=== PATIENT | female | born 1940 | race Caucasian/White ===

== ENCOUNTER → 2019-03-14 | Outpatient (CLI) | payer OTHER ==
[~2019-03-14] VITALS: Ht 154.9 cm; Wt 74.8 kg
[~2019-03-14] MED LIST: ASPIR 8181 M1 PO; ASPIR 8181 MG PO; ASPIRIN325 PO; CARDIZEM CD120 MG PO; CARVEDILOL12.5 MG PO; CELEXA20 MG PO; COLACE 100 MG100 MG PO; COREG6.25 MG PO; CYCLOBENZAPRINE10 MG PO; DIFLUCAN150 MG PO; DILTIAZEM 24HR180 M1 PO; GLUCOPHAGE500 MG PO; HYDRALAZINE 2525 MG PO; HYDROCHLOROTH12.5 M1 PO; HYDROCHLOROTHIA25 M1 PO; HYDROCODONE-AP1 EAC6 PO; KEFLEX500 M1 PO; LIPITOR10 MG PO; LISINOPRIL20 MG PO; LISINOPRIL40 MG PO; LIVALO2 MG; LIVALO4 MG; METAMUCIL PAC1 UDPKT PO; MIRALAX17 G1 PO; NORVASC5 MG PO; PEPCID20 MG PO; PREDNISONE 20 M20 M1 PO; PRINZIDE 20-251 EACH PO; ROXICODONE5 MG PO; TOPROL XL50 MG PO; TRAMADOL100 MG PO; TYLENOL325 MG PO; XARELTO10 MG PO; ZESTRIL20 MG PO
--- NOTE | ~2019-03-14 | P ---
[facility] [place] [address] PROCEDURE REPORT Name: KEEGANJULIO Tiara Room #: REG MARISSA Xiang#: [id number] Admission: 03/14/19 ������������������ Attend Phys: Zac Tripp MD Discharge: ������������������ Date of : 44 Report #: [id number] THIS REPORT FOR: //name// CC: Yamilet Tripp SVT ABLATION PREOPERATIVE DIAGNOSIS: Supraventricular tachycardia. POSTOPERATIVE DIAGNOSIS: Typical atrioventricular kush reentrant tachycardia. PROCEDURES PERFORMED: 1. SVT ablation, CPT code 42881. 2. EP with left atrial pacing and recording, CPT code 87421. 3. Program stimulation and pacing after IV drug infusion, CPT code 32600. 4. 3D mapping, CPT code 16921. HISTORY OF PRESENT ILLNESS: The patient is a 78-year-old female with a history of SVT that is adenosine sensitive and is here for an ablation. ANESTHESIA: The patient underwent MAC anesthesia with no anesthesia related complications. DESCRIPTION OF PROCEDURE: The patient underwent informed consent. We discussed the details of the procedure including the risks, which include but not limited to bleeding, vascular damage, cardiac perforation as well as stroke or MA or damage to the [place] conduction system. She understood these risks and is willing to proceed. The patient was brought to the EP laboratory in a fasting and sedated state, prepped and draped in a sterile fashion. I injected lidocaine to the bilateral groins. Obtained access to bilateral femoral veins using the modified Seldinger technique. In the right femoral vein, I placed an 8 and 6-Malagasy short sheath. In the left femoral vein, I placed a 7 and 6-Malagasy short sheath. Under fluoroscopy, I placed 3 quadripolar catheters at the HRA, His, and RV positions and a Decapolar catheter into the coronary sinus, which was utilized for left atrial pacing and recording At baseline, the patient was in sinus rhythm with sinus cycle length of 840 msec, OR interval 150 msec, QRS duration 80 msec, QT interval 400 msec, AH interval 90 msec, HV interval 35 msec. Next, atrial burst pacing was performed and AV block was noted at 400 msec. There was a clear evidence of a slow pathway with atrial pacing. Next, a single atrial extrastimuli were delivered. Atrial ERP was noted at 300 msec at a [address] cycle length. There was evidence of dual AV kush echoes. Ventricular pacing was performed and VA block was noted at 470 msec. Ventricular ERP was noted at 260 msec at a 500 [facility] [address] [place] [address] PROCEDURE REPORT Name: JULIO ALLISON Room #: REG [facility]#: [id number] Admission: 03/14/19 ������������������ Attend Phys: Zac Tripp MD Discharge: ������������������ Date of : 44 Report #: [id number] cycle length. With atrial burst pacing, the patient went into SVT that was consistent with AV kush reentrant tachycardia and this terminated with ____. An isoproterenol infusion was initiated at 1 mcg per minute and after the stroke took effect, I was able to easily burst the patient into SVT. The tachycardia cycle length was 390 msec. The septal VA time was 35 msec. There was a VAHV response consistent with typical AV kush reentrant tachycardia. I was able to induce this several times with atrial burst pacing. 3D MAPPING AND ABLATION: Next, I removed my HRA catheter and exchanged the sheath for an SR0 and a 4 mm Biosense Blair ablation catheter. Next, a detailed 3D geometry was created of the right atrium with specific emphasis of the His cloud, coronary sinus ostium and slow pathway region. I found signals that were consistent with the slow pathway. I did 4 initial ablation lesions. During the fourth lesion, I had approximately 40 seconds of nice slow junctionals. At this point, I decided to perform additional testing back on isoproterenol. After a few minutes, I did re-induce typical AV kush reentrant tachycardia. Therefore, the isoproterenol was turned off again. I performed 5 more ablation lesions, lesions #8 and #9, which were slightly higher than the region where I initially obtained junctionals. Both demonstrated nice slow junctionals, which lasted 50 seconds during each lesion. Last 2 lesions were of 60 seconds duration. As such, I decided again to do some testing. The patient was placed back on isoproterenol 2 mcg per minute. AV block was now 330 msec. AV kush ERP was noted at 240 msec at a [address] cycle length. I continued aggressive atrial pacing maneuvers and I could no longer induce SVT. There were occasional single AV kush echoes noted. We tested for approximately 20-30 minutes and the patient was now noninducible. Post-ablation, the patient was in sinus rhythm with a sinus cycle length of 640 msec, OR interval 150 msec, QRS duration 80 msec, QT interval 400 msec. As such, all catheters and sheaths were pulled. Hemostasis was obtained and the patient awoke neurologically and hemodynamically intact. CONCLUSIONS: 1. Successful ablation of typical AV kush reentrant tachycardia. 2. Normal SA kush function. 3. Normal AV kush function. 4. Normal His-Purkinje function. 5. No other inducible arrhythmias on or off isoproterenol. ��������������������������������������������� ���������������������������������������� By: ��������������������������������������������� [id number] Zac Tripp MD /nt
[2019-03-14 07:27] VITALS: BP 184/71
[2019-03-14 07:30] LABS: HEMATOCRIT 37.4 % (37.0-47.0); HEMOGLOBIN 12.6 gm/dL (12.0-15.0); MCH 29.1 pg (26.0-34.0); MCHC 33.7 g/dL (28.0-37.0); MCV 86.4 fL (80.0-100.0); RBC 4.33 mil/uL (4.20-5.00); WBC 6.7 thou/uL (4.0-11.0)
[2019-03-14 07:42] LABS: CALCIUM 9.5 mg/dL (8.5-10.1); CREATININE 0.7 mg/dL (0.6-1.0); POTASSIUM 3.9 mmol/L (3.5-5.1)
[2019-03-14 07:43] LABS: APTT 28.6 Seconds (24.5-32.8); PROTIME 9.7 Seconds (9.3-11.4)
[2019-03-14 07:48] LABS: ALBUMIN 4.1 g/dL (3.4-5.0); TOTAL BILIRUBIN 0.4 mg/dL (<0.1-1.0); TOTAL PROTEIN 7.4 g/dL (6.4-8.2)
== END ==
LOC: CATH 06:50
PROVIDERS: Internal Medicine Infectious Disease
DX: I47.1 Supraventricular tachycardia (principal); I10 Essential (primary) hypertension; E78.5 Hyperlipidemia, unspecified; I48.91 Unspecified atrial fibrillation; I25.10 Atherosclerotic heart disease of native coronary artery without angina pectoris; I21.3 ST elevation (STEMI) myocardial infarction of unspecified site; Z88.2 Allergy status to sulfonamides; Z79.01 Long term (current) use of anticoagulants; Z90.49 Acquired absence of other specified parts of digestive tract; Z98.890 Other specified postprocedural states; Z87.891 Personal history of nicotine dependence; Z79.82 Long term (current) use of aspirin; Z79.899 Other long term (current) drug therapy
CPT/HCPCS: 62110; 62900; 70005